=== PATIENT | male | born 1990 | race Caucasian/White ===

== ENCOUNTER 2016-11-16 10:45 | Emergency (ER) | payer OTHER ==
[~2016-11-16] VITALS: Ht 185.4 cm; Wt 65.2 kg
[2016-11-16 10:56] VITALS: TEMP 36.8; Ht 185.4 cm; Wt 65.2 kg
[2016-11-16] MEDS ORDERED: METH500T37 PO (11:12)
[2016-11-16] MEDS ORDERED: PRED10TA PO (11:12)
[2016-11-16 11:58] VITALS: O2SAT 99
[2016-11-16 12:36] LABS: BASO % 0.1 %; BASO ABS # 0.01 K/uL (0-0.2); COMPLETE YES; EOS % 1.2 %; HEMATOCRIT 42.1 % (42-52); IG% 0.2 %; LYMPH % 30.9 %; LYMPH ABS # 2.51 K/uL (1.2-3.4); MEAN CELL VOLUME 89.6 fL (80-100); MEAN CORPUSCULAR HEMOGLOBIN 31.5 pg (25-34); MEAN CORPUSCULAR HGB CONC 35.2 g/dl (32-36); MEAN PLATELET VOLUME 10.9 fL (7.4-10.4); MONO % 5.2 %; NEUT % 62.4 %; PLATELET COUNT 182 K/uL (130-400); WHITE BLOOD COUNT 8.12 K/uL (4.8-10.8)
[2016-11-16 12:44] LABS: INR 1.1 (0.9-1.1); PROTHROMBIN TIME (PATIENT) 11.3 SECONDS (9.0-12.0)
[2016-11-16 13:00] LABS: CALCIUM 9.1 mg/dl (8.5-10.1); CREATININE 0.94 mg/dl (0.60-1.40); POTASSIUM 4.4 mmol/L (3.5-5.1)
[2016-11-16] MEDS ORDERED: OPTIRAY 320 IV PRN (14:00)
--- NOTE | 2016-11-16 14:13 | DIAGNOSTIC IMAGING REPORT ---
CT ANGIOGRAPHY OF THE CHEST, PULMONARY EMBOLUS PROTOCOL CLINICAL HISTORY: Rib pain. COMPARISON STUDY: No previous studies for comparison. TECHNIQUE: Following IV administration of 92 mL of Optiray-320, helical axial images of the chest were obtained utilizing the pulmonary embolus protocol. Maximal intensity projections and sagittal and coronal reformats were viewed on an independent 3D workstation. IV contrast was administered without complication. CT DOSE: 279.08 mGycm FINDINGS: No pulmonary emboli are identified. The size of the heart is normal. There is no pericardial effusion. No enlarged axillary, mediastinal or hilar lymph nodes are present. Opacification of the thoracic aorta suboptimal but there is no evidence for dissection. The central airways are patent. No consolidation is present. There is no pneumothorax or pleural effusion. Visualized portions of the bony thorax and upper abdomen are unremarkable. IMPRESSION: 1. No pulmonary emboli identified. 2. No acute intrathoracic findings. Electronically signed by: Jamie Muñoz M.D. 11/16/2016 2:11 PM Dictated Date/Time: 11/16/2016 2:03 PM
[2016-11-16] MEDS ORDERED: OXYC1TAB3 PO (14:34)
[2016-11-16 15:17] VITALS: BP 106/64; PULSE 59; O2SAT 100
--- NOTE | 2016-11-16 15:36 | EMERGENCY ROOM VISIT NOTE ---
History Report prepared by Ravinder: Fahad Nelson Under the Supervision of: Dr. Jonh Campos M.D. First contact with patient: 11:45 Chief Complaint: REFERRED BY DOCTOR Stated Complaint: SORE RIB AREA, POSSIBLE BLOOD CLOT History of Present Illness The patient is a 26 year old male who presents to the Emergency Room with complaints of constant right rib pain beginning one week prior to arrival. He describes the pain as sharp and currently rates his discomfort as a 7/10 in severity. The patient states his pain worsens with movement and deep breathing. 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 He is not sure if he pulled something while doing heavy lifting. For possible pulmonary embolism The patient states he was at [facility] and referred to the ED for further evaluation. He notes the clinic performed a rib and chest x-ray. He denies a fever, cough, swelling or pain in the legs, problems urinating, and a history of blood clots. The patient denies a family history of blood clots, as well. He notes he smokes a pack of cigarettes per day. 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 A total of 10 systems reviewed and were otherwise negative. Past Medical & Surgical Medical Problems: (1) No pertinent past medical history Family History Patient reports no known family medical history. Social History Smoking Status: Current Every Day Smoker Marital Status: single Occupation Status: employed Current/Historical Medications Scheduled Prednisone (Prednisone), 0 PO UD Scheduled PRN Methocarbamol (Robaxin), 1 TAB PO Q6 PRN for Muscle Spasms Oxycodone Ir (Roxicodone Ir), 5 MG PO Q4H PRN for Pain Allergies Coded Allergies: No Known Allergies (Unverified , 11/16/16) Physical Exam Vital Signs Date Time Temp Pulse Resp B/P Pulse Ox O2 Delivery O2 Flow Rate FiO2 11/16/16 15:17 59 16 106/64 100 11/16/16 14:00 54 16 112/79 100 Room Air 11/16/16 13:11 58 16 118/78 98 Room Air 1/16/17 12:11 61 11/16/16 11:58 60 18 121/78 99 Room Air 11/16/16 11:58 99 Room Air 11/16/16 10:56 36.8 67 20 126/66 98 Room Air Physical Exam Constitutional: Vital signs reviewed. Eyes: Pupils are equal round reactive to light. Conjunctiva are noninjected. ENT: Pharynx is clear without erythema or exudate. Mucous membranes are moist. Neck supple without meningeal signs. Respiratory: Clear to auscultation bilaterally. Breath sounds are equal bilaterally. Cardiovascular: Regular rate and rhythm. No rubs or gallops. GI: Soft, nondistended and nontender. Bowel sounds are present. Musculoskeletal: Tenderness over the right lower ribs. No peripheral edema. No lower extremity tenderness. Integumentary: No cyanosis. Neurological: The patient is awake and alert. No focal deficits. Psychiatric: Normal affect. Medical Decision & Procedures ER Provider Diagnostic Interpretation: CT results as stated below per my review and radiologist interpretation. CT ANGIOGRAPHY OF THE CHEST, PULMONARY EMBOLUS PROTOCOL CLINICAL HISTORY: Rib pain. COMPARISON STUDY: No previous studies for comparison. TECHNIQUE: Following IV administration of 92 mL of Optiray-320, helical axial images of the chest were obtained utilizing the pulmonary embolus protocol. Maximal intensity projections and sagittal and coronal reformats were viewed on an independent 3D workstation. IV contrast was administered without complication. CT DOSE: 279.08 mGycm FINDINGS: No pulmonary emboli are identified. The size of the heart is normal. There is no pericardial effusion. No enlarged axillary, mediastinal or hilar lymph nodes are present. Opacification of the thoracic aorta suboptimal but there is no evidence for dissection. The central airways are patent. No consolidation is present. There is no pneumothorax or pleural effusion. Visualized portions of the bony thorax and upper abdomen are unremarkable. IMPRESSION: 1. No pulmonary emboli identified. 2. No acute intrathoracic findings. Electronically signed by: Jamie Muñoz M.D. 11/16/2016 2:11 PM Laboratory Results 11/16/16 12:17 Red Blood Count 4.70, Mean Corpuscular Volume 89.6, Mean Corpuscular Hemoglobin 31.5, Mean Corpuscular Hemoglobin Concent 35.2, Mean Platelet Volume 10.9, Neutrophils (%) (Auto) 62.4, Lymphocytes (%) (Auto) 30.9, Monocytes (%) (Auto) 5.2, Eosinophils (%) (Auto) 1.2, Basophils (%) (Auto) 0.1, Neutrophils # (Auto) 5.06, Lymphocytes # (Auto) 2.51, Monocytes # (Auto) 0.42, Eosinophils # (Auto) 0.10, Basophils # (Auto) 0.01 11/16/16 12:17 Test 11/16/16 12:17 11/16/16 12:24 White Blood Count 8.12 K/uL (4.8-10.8) Red Blood Count 4.70 M/uL (4.7-6.1) Hemoglobin 14.8 g/dL (14.0-18.0) Hematocrit 42.1 % (42-52) Mean Corpuscular Volume 89.6 fL (80-100) Mean Corpuscular Hemoglobin 31.5 pg (25-34) Mean Corpuscular Hemoglobin Concent 35.2 g/dl (32-36) Platelet Count 182 K/uL (130-400) Mean Platelet Volume 10.9 fL (7.4-10.4) Neutrophils (%) (Auto) 62.4 % Lymphocytes (%) (Auto) 30.9 % Monocytes (%) (Auto) 5.2 % Eosinophils (%) (Auto) 1.2 % Basophils (%) (Auto) 0.1 % Neutrophils # (Auto) 5.06 K/uL (1.4-6.5) Lymphocytes # (Auto) 2.51 K/uL (1.2-3.4) Monocytes # (Auto) 0.42 K/uL (0.11-0.59) Eosinophils # (Auto) 0.10 K/uL (0-0.5) Basophils # (Auto) 0.01 K/uL (0-0.2) RDW Standard Deviation 39.8 fL (36.4-46.3) RDW Coefficient of Variation 12.2 % (11.5-14.5) Immature Granulocyte % (Auto) 0.2 % Immature Granulocyte # (Auto) 0.02 K/uL (0.00-0.02) Prothrombin Time 11.3 SECONDS (9.0-12.0) Prothromb Time International Ratio 1.1 (0.9-1.1) Activated Partial Thromboplast Time 25.8 SECONDS (21.0-31.0) Partial Thromboplastin Ratio 1.0 Anion Gap 7.0 mmol/L (3-11) Est Creatinine Clear Calc Drug Dose 111.7 ml/min Estimated GFR () 131.0 Estimated GFR (Non- 113.0 BUN/Creatinine Ratio 10.0 (10-20) Calcium Level 9.1 mg/dl (8.5-10.1) Bedside D-Dimer 299 ng/mlFEU (0-450) Bedside Troponin I 0.000 ng/ml (0-0.045) Laboratory results as reviewed by me. ECG Indication: other (right rib pain) Rate (beats per minute): 53 Rhythm: sinus bradycardia Findings: 1st degree AV block, RBBB (incomplete), other (early repolarization) Comparison ECG Date: no prior available ED Course 1147: The patient was evaluated in room C10. A complete history and physical exam was performed. 1252: I discussed CT scanning of the chest with the patient, and he is agreeable. 1433: Upon reevaluation, the patient appeared to have improvement of his symptoms. I discussed tonight's findings with him and reviewed precautions regarding narcotic use. He verbalized agreement of the treatment plan. The patient was discharged home. Medical Decision This is a 26-year-old male who presents with right-sided chest pain. Differential diagnosis includes pleurisy, rib fracture, strain, pulmonary embolism, pericarditis, pneumothorax. I did perform a limited focused review of portions of the patient's old chart on the electronic medical record. The patient has no prior visits. I did evaluate the patient as noted above. IV access was established. 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 I did order and personally review the patient's 12-lead EKG as described above. I did order and review the patient's blood work as noted in the electronic medical record. Troponin and d-dimer are negative. After discussion with the patient, I did order a CT of the chest to rule out pulmonary embolism . I did review the images myself as well as the radiology report as described above. I did discuss the test results with the patient. The patient was advised to use anti-inflammatories for pain control. He was given a prescription for 14 OxyIR for breakthrough pain and given precautions regarding its use. He was discharged in good condition. [place] Drug Monitoring Program Search Results: patient reviewed within database, no issues identified Impression Primary Impression: Right-sided chest pain Scribe Attestation The scribe's documentation has been prepared under my direct and personally reviewed by me in its entirety. I confirm that the note above accurately reflects all work, treatment, procedures, and medical decision making performed by me. Departure Information Dispostion Home / Self-Care Prescriptions Oxycodone Ir (Roxicodone Ir) 5 Mg Tab 5 MG PO Q4H Y for Pain, #14 TAB Prov: John Campos M.D. 11/16/16 Referrals No Doctor, Assigned (PCP) Forms HOME CARE DOCUMENTATION FORM, IMPORTANT VISIT INFORMATION, WORK / SCHOOL INSTRUCTIONS Patient Instructions ED Chest Pain Atypical Unkn Cause, My [facility] Additional Instructions You have been examined and treated today on an emergency basis only. This is not a substitute for, or an effort to provide, complete comprehensive medical care. It is impossible to recognize and treat all injuries or illnesses in a single emergency department visit. It is therefore important that you follow up closely with your physician. Call as soon as possible for an appointment. Return for worsening symptoms or if you develop fever, vomiting, shortness of breath or any other concerning symptoms.
== END 2016-11-16 15:15 | disposition home or self-care (01) ==
LOC: C.EDB 10:47 → C.EDC 15:15
DX: R07.9 Chest pain, unspecified (principal); F17.210 Nicotine dependence, cigarettes, uncomplicated